=== PATIENT | male | born 1990 | race American Indian/Alaskan Native ===

== ENCOUNTER 2017-04-02 01:45 | Emergency (ER) | payer SELFPAY ==
[2017-04-02 02:17] LABS: Basophils % (Auto) 0.5 % (0.0-1.8); Eosinophils % (Auto) 0.3 % (0.0-4.3); Hematocrit 45.5 % (35.5-45.6); Hemoglobin 15.4 gm/dl (11.8-15.2); Mean Corpuscular HGB Conc 34 % (32-34); Mean Corpuscular Hemoglobin 28 pg (28-32); Mean Corpuscular Volume 82 fl (84-94); Platelet Count 263 K/mm3 (140-440); Red Blood Count 5.52 M/mm3 (3.65-5.03); Red Cell Distribution Width 14.1 % (13.2-15.2); White Blood Count 8.2 K/mm3 (4.5-11.0)
[2017-04-02 02:40] LABS: Anion Gap 21 mmol/L; BUN/Creatinine Ratio 17; Blood Urea Nitrogen 17 mg/dL (9-20); Calcium 9.1 mg/dL (8.4-10.2); Carbon Dioxide 23 mmol/L (22-30); Chloride 99.6 mmol/L (98-107); Glucose 142 mg/dL (75-100); Potassium 3.3 mmol/L (3.6-5.0); Sodium 140 mmol/L (137-145)
[2017-04-02 03:05] LABS: Urine Drugs of Abuse Note Disclamer
[2017-04-02 03:26] LABS: Bilirubin,Urine NEG (Negative); Blood,Urine NEG (Negative); Ketones,Urine TR mg/dL (Negative); Leukocyte Esterase,Urine NEG (Negative); Mucus,Urine 2+ /HPF; Nitrite,Urine NEG (Negative); Protein,Urine <15 mg/dL mg/dL (Negative)
[2017-04-02] MEDS ORDERED: K-DUR PO ONE (03:58)
--- NOTE | 2017-04-02 06:16 | Emergency Department Report ---
ED Psych HPI - General Chief Complaint: Psych Stated Complaint: SUICIDAL Time Seen by Provider: 04/02/17 03:52 Source: patient Mode of arrival: Ambulatory Limitations: No Limitations - History of Present Illness Initial Comments: 26-year-old male presents to the hospital with complaints of sided thoughts times several months. Patient also having auditory and visual hallucinations seeing "black shadows" for several months. Patient also experiencing paranoia. Patient has been homeless 1 year dealing with a cocaine addiction for 10 years. Patient denies previous suicide attempts. Plan today is to run into [employer]. No physical complaints. Patient denies history of psychiatric diagnosis or treatment - Related Data Home Medications Medication Instructions Recorded Confirmed Last Taken Rivaroxaban [Xarelto] 20 mg PO QDAY 04/02/17 04/02/17 3 Weeks Ago Allergies Allergy/AdvReac Type Severity Reaction Status Date / Time Penicillins AdvReac Angioedema Verified 04/02/17 01:54 ED Review of Systems ROS: Stated complaint: SUICIDAL Other details as noted in HPI Comment: All other systems reviewed and negative Other: Constitutional: No fevers chills Eyes: No eye pain visual changes ENT: No ear pain or throat pain Neck: Denies pain Respiratory: Denies cough wheezing shortness of breath Cardiovascular: Denies chest pain, palpitations, syncope GI: Denies abdominal pain, nausea, vomiting, diarrhea : Denies dysuria Musculoskeletal: Denies back pain Skin: Denies rash, lesions, erythema Neurologic: Denies headache, numbness, weakness Psychiatric: As per HPI ED Past Medical Hx - Past Medical History Previous Medical History?: Yes Additional medical history: Protein deficiency, - Surgical History Past Surgical History?: Yes Additional Surgical History: right leg amputation, dvt - Social History Smoking Status: Current Every Day Smoker Substance Use Type: Alcohol - Medications Home Medications: Home Medications Medication Instructions Recorded Confirmed Last Taken Type Rivaroxaban [Xarelto] 20 mg PO QDAY 04/02/17 04/02/17 3 Weeks Ago History ED Physical Exam - General Limitations: No Limitations - Other Other exam information: General: No limitations, patient is alert in no acute distress Head exam: Atraumatic, normocephalic Eyes exam: Normal appearance, pupils equal reactive to light, extraocular movements intact ENT: Moist mucous membrane, normal oropharynx Neck exam: Normal inspection, full range of motion, no meningismus nontender Respiratory exam: Clear to auscultation bilateral, no wheezes, rales, crackles Cardiovascular: Normal rate and rhythm, normal heart sounds Abdomen: Soft, nondistended, and nontender, with normal bowel sounds, no rebound, or guarding Extremity: Full range of motion normal inspection no deformity Back: Normal Inspection, full range of motion, no tenderness Neurologic: Alert, oriented x3, cranial nerves intact, no motor or sensory deficit Psychiatric: normal affect, normal mood Skin: Warm, dry, intact ED Course Vital Signs 04/02/17 04/02/17 01:48 01:50 Temperature 97.6 F 97.6 F Pulse Rate 96 H 98 H Respiratory 17 18 Rate Blood Pressure 116/71 O2 Sat by Pulse 99 96 Oximetry - Reevaluation(s) Reevaluation #1: 04/02/17 06:18 stable [facility] ED Medical Decision Making - Lab Data Result diagrams: 04/02/17 02:03 04/02/17 02:03 Lab Results 04/02/17 04/02/17 04/02/17 Range/Units 02:03 02:03 02:03 WBC 8.2 (4.5-11.0) K/mm3 RBC 5.52 H (3.65-5.03) M/mm3 Hgb 15.4 H (11.8-15.2) gm/dl Hct 45.5 (35.5-45.6) % MCV 82 L (84-94) fl MCH 28 (28-32) pg MCHC 34 (32-34) % RDW 14.1 (13.2-15.2) % Plt Count 263 (140-440) K/mm3 Lymph % (Auto) 27.6 (13.4-35.0) % [place] % (Auto) 7.1 (0.0-7.3) % Eos % (Auto) 0.3 (0.0-4.3) % Baso % (Auto) 0.5 (0.0-1.8) % Lymph # 2.3 (1.2-5.4) K/mm3 [place] # 0.6 (0.0-0.8) K/mm3 Eos # 0.0 (0.0-0.4) K/mm3 Baso # 0.0 (0.0-0.1) K/mm3 Seg Neutrophils % 64.5 (40.0-70.0) % Seg Neutrophils # 5.3 (1.8-7.7) K/mm3 Sodium 140 (137-145) mmol/L Potassium 3.3 L (3.6-5.0) mmol/L Chloride 99.6 (98-107) mmol/L Carbon Dioxide 23 (22-30) mmol/L Anion Gap 21 mmol/L BUN 17 (9-20) mg/dL Creatinine 1.0 (0.8-1.5) mg/dL Estimated GFR > 60 ml/min BUN/Creatinine Ratio 17 % Glucose 142 H (75-100) mg/dL Calcium 9.1 (8.4-10.2) mg/dL Total Creatine Kinase (55-170) units/L Urine Color (Yellow) Urine Turbidity (Clear) Urine pH (5.0-7.0) Ur Specific [place] (1.003-1.030) Urine Protein (Negative) mg/dL Urine Glucose (UA) (Negative) mg/dL Urine Ketones (Negative) mg/dL Urine Blood (Negative) Urine Nitrite (Negative) Urine Bilirubin (Negative) Urine Urobilinogen (<2.0) mg/dL Ur Leukocyte Esterase (Negative) Urine WBC (Auto) (0.0-6.0) /HPF Urine RBC (Auto) (0.0-6.0) /HPF U Epithel Cells (Auto) (0-13.0) /HPF Urine Mucus /HPF Urine Opiates Screen Urine Methadone Screen Ur Barbiturates Screen Ur Phencyclidine Scrn Ur Amphetamines Screen U Benzodiazepines Scrn Urine Cocaine Screen U Marijuana (THC) Screen Drugs of Abuse Note Plasma/Serum Alcohol < 0.01 (0-0.07) gm% 04/02/17 04/02/17 04/02/17 Range/Units 02:03 02:33 02:33 WBC (4.5-11.0) K/mm3 RBC (3.65-5.03) M/mm3 Hgb (11.8-15.2) gm/dl Hct (35.5-45.6) % MCV (84-94) fl MCH (28-32) pg MCHC (32-34) % RDW (13.2-15.2) % Plt Count (140-440) K/mm3 Lymph % (Auto) (13.4-35.0) % [place] % (Auto) (0.0-7.3) % Eos % (Auto) (0.0-4.3) % Baso % (Auto) (0.0-1.8) % Lymph # (1.2-5.4) K/mm3 [place] # (0.0-0.8) K/mm3 Eos # (0.0-0.4) K/mm3 Baso # (0.0-0.1) K/mm3 Seg Neutrophils % (40.0-70.0) % Seg Neutrophils # (1.8-7.7) K/mm3 Sodium (137-145) mmol/L Potassium (3.6-5.0) mmol/L Chloride (98-107) mmol/L Carbon Dioxide (22-30) mmol/L Anion Gap mmol/L BUN (9-20) mg/dL Creatinine (0.8-1.5) mg/dL Estimated GFR ml/min BUN/Creatinine Ratio % Glucose (75-100) mg/dL Calcium (8.4-10.2) mg/dL Total Creatine Kinase 267 H (55-170) units/L Urine Color Yellow (Yellow) Urine Turbidity Clear (Clear) Urine pH 6.0 (5.0-7.0) Ur Specific [place] 1.029 (1.003-1.030) Urine Protein <15 mg/dl (Negative) mg/dL Urine Glucose (UA) Neg (Negative) mg/dL Urine Ketones Tr (Negative) mg/dL Urine Blood Neg (Negative) Urine Nitrite Neg (Negative) Urine Bilirubin Neg (Negative) Urine Urobilinogen 4.0 (<2.0) mg/dL Ur Leukocyte Esterase Neg (Negative) Urine WBC (Auto) 1.0 (0.0-6.0) /HPF Urine RBC (Auto) 2.0 (0.0-6.0) /HPF U Epithel Cells (Auto) < 1.0 (0-13.0) /HPF Urine Mucus 2+ /HPF Urine Opiates Screen Presumptive negative Urine Methadone Screen Presumptive negative Ur Barbiturates Screen Presumptive negative Ur Phencyclidine Scrn Presumptive negative Ur Amphetamines Screen Presumptive negative U Benzodiazepines Scrn Presumptive negative Urine Cocaine Screen Presumptive positive U Marijuana (THC) Screen Presumptive negative Drugs of Abuse Note Disclamer Plasma/Serum Alcohol (0-0.07) gm% - Medical Decision Making Patient received by mouth potassium. Patient medically clear for psychiatric admission. 1013 and transfer signed - Differential Diagnosis homelessness, substance abuse, bipolar, psychosis, schizophrenia, substance Critical Care Time: No Critical care attestation.: If time is entered above; I have spent that time in minutes in the direct care of this critically ill patient, excluding procedure time. ED Disposition Clinical Impression: Suicidal ideation, Cocaine abuse, Psychosis, Medical clearance for psychiatric admission Disposition: [id number]/TX-65 PSY HOSP/PSY UNIT Is pt being admited?: No Does the pt Need Aspirin: No Condition: Stable Time of Disposition: 06:19 (awaiting acceptance)
--- NOTE | 2017-04-02 11:39 | Consultation ---
History of Present Illness - Reason for Consult Consult date: 04/02/17 Reason for consult: Mental Health Evaluation Requesting physician: MARISA US - Chief Complaint Chief complaint: "I have no reason to live" - History of Present Psychiatric Illness 26-year-old male presents to the hospital with complaints of sided thoughts times several months. Today patient is calm and cooperative during the assessment. He stated that he been "battling" depression and SI's for months. He stated that his cocaine addiction (10 plus years) is the cause of all his problems. He stated that he called the crisis hotline prior to being admitted to [facility]. He stated being unsuccessful with rehab for his cocaine addiction in the past. He stated that his sleep has been erratic the past couple of weeks because he was "binging" on cocaine. He stated experiencing AH's during this time. He stated feeling sad, helpless, and hopeless with a plan to overdose on cocaine if given the chance. He denies any suicide attempts in the past. He denies HI's and VH's. He rate his depression 7/10, with 10 being the worse. He denies excessive alcohol consumption (etoh). Patient has a right AKA. Patient positive for cocaine. Medications and Allergies Allergies Allergy/AdvReac Type Severity Reaction Status Date / Time Penicillins AdvReac Angioedema Verified 04/02/17 01:54 Home Medications Medication Instructions Recorded Confirmed Last Taken Type Rivaroxaban [Xarelto] 20 mg PO QDAY 04/02/17 04/02/17 3 Weeks Ago History Past psychiatric history - Past Medical History Past Medical History: other (Blood Clots) Past Surgical History: Other (Right AKA) - past Psychiatric treatment and history psychiatric treatment history: Denies a psy hx and a fam psy hx. - Social History Social history: other (Homeless) Mental Status Exam - Vital signs Last Vital Signs Temp 97.0 F L 04/02/17 09:39 Pulse 85 04/02/17 09:39 Resp 18 04/02/17 09:41 BP 106/63 04/02/17 09:39 Pulse Ox 98 04/02/17 09:41 - Exam Narrative exam: MSE: Appearance: calm, cooperative, disheveled Behavior: poor eye contact Speech: low rate and tone Mood: "depressed" withdrawn, sad Affect: congruent to mood Thought Process: circumstantial Thought Content: denies SI and VH's, intermittent AH's Motor Activity: lying in bed Cognition: A/O x3 Insight: variable Judgment: variable Results Result Diagrams: 04/02/17 02:03 04/02/17 02:03 Abnormal lab results 04/02/17 04/02/17 04/02/17 Range/Units 02:03 02:03 02:03 RBC 5.52 H (3.65-5.03) M/mm3 Hgb 15.4 H (11.8-15.2) gm/dl MCV 82 L (84-94) fl Potassium 3.3 L (3.6-5.0) mmol/L Glucose 142 H (75-100) mg/dL Total Creatine Kinase 267 H (55-170) units/L All other labs normal. Assessment and Plan Assessment and plan: Impression: MDD severe type. Substance Use DO (cocaine). Today patient is calm and cooperative during the assessment. Patient is suicidal with a plan. Patient has right AKA. Patient positive for cocaine. DDx: R/O Bipolar, Substance Induced Mood DO Recommendation/Plan: Continue 1013 with placement to inpatient psy services. Start Remeron 15 mg PO HS for depression/sleep consolidation. Discussed possible suicidality/medication induced bill reference Remeron with patient. Discussed the importance to abstain from recreational drugs use.
[2017-04-02] MEDS ORDERED: REMERON PO SCH (22:00)
[2017-04-03] MEDS ORDERED: XARELTO PO ONE (09:30)
--- NOTE | 2017-04-03 10:26 | Progress Note ---
Subjective - Reason for Consult Consult date: 04/03/17 Reason for consult: Psychiatry Follow-up - Chief Complaint Chief complaint: "I feel sleepy" 26-year-old male presents to the hospital with complaints of sided thoughts times several months. Today patient is calm and cooperative during the assessment. He stated getting rest last night, but feel "drowsy." He stated that the medication made him feel "weird" last night (Remeron). He could not confirm or deny SI's. He denies AVH's. He rate his depression 6/10, with 10 being the worse. Patient stated that he take Xarelto for blood clots, but have not taking the medications in weeks. Mental Status Exam - Vital signs Last Vital Signs Temp 98.2 F 04/03/17 08:30 Pulse 78 04/03/17 08:30 Resp 16 04/03/17 08:30 BP 113/91 04/03/17 08:30 Pulse Ox 100 04/03/17 08:30 - Exam Narrative exam: MSE: Appearance: calm, cooperative Behavior: regular eye contact Speech: regular rate and tone Mood: "depressed" Affect: congruent to mood Thought Process: circumstantial Thought Content: denies HI's and AVH's Motor Activity: lying in bed, lethargic Cognition: A/O x3 Insight: variable Judgment: variable Assessment and Plan Impression: MDD severe type. Substance Use DO (cocaine). Today patient is calm and cooperative during the assessment. Patient has passive SI's. Patient has right AKA. Patient positive for cocaine. DDx: R/O Bipolar, Substance Induced Mood DO Recommendation/Plan: Continue 1013 with placement to inpatient psy services. Start Zoloft 50 mg PO daily depression. Discussed possible suicidality/ medication induced bill reference Zoloft with patient. Discussed the importance to abstain from recreational drugs use. Informed the ER Physician and nursing staff that patient takes Xarelto for blood clots.
[2017-04-03] MEDS: ZOLOFT PO SCH (11:05)
--- NOTE | 2017-04-04 10:48 | Progress Note ---
Subjective - Reason for Consult Consult date: 04/04/17 Reason for consult: Psychiatry Follow-up - Chief Complaint Chief complaint: "I feel better" 26-year-old male presents to the hospital with complaints of sided thoughts times several months. Today patient is calm and cooperative during the assessment. He stated that he want to get his life together once discharged. He stated that he got plenty of rest last night. He denies SI/HI's and AVH's. He rate his depression 3/10, with 10 being the worse. He denies any side effects of his medications. This is the patient's first day denying SI's. Mental Status Exam - Vital signs Last Vital Signs Temp 98 F 04/03/17 20:35 Pulse 88 04/03/17 20:35 Resp 18 04/03/17 20:35 BP 127/80 04/03/17 20:35 Pulse Ox 99 04/03/17 20:35 - Exam Narrative exam: MSE: Appearance: calm, cooperative Behavior: regular eye contact Speech: regular rate and tone Mood: "better" Affect: congruent to mood Thought Process: circumstantial Thought Content: denies HI's and AVH's Motor Activity: lying in bed Cognition: A/O x3 Insight: variable Judgment: variable Assessment and Plan Impression: MDD severe type. Substance Use DO (cocaine). Today patient is calm and cooperative during the assessment. Patient has right AKA. Patient positive for cocaine. DDx: R/O Bipolar, Substance Induced Mood DO Recommendation/Plan: Evaluate 1013 in 24 hours to determine proper dispo. Continue Zoloft 50 mg PO daily depression. Discussed possible suicidality/ medication induced bill reference Zoloft with patient. Discussed the importance to abstain from recreational drugs use. Informed the ER Physician and nursing staff that patient takes Xarelto for blood clots.
[2017-04-04] MEDS: ZOLOFT PO SCH (11:27)
[2017-04-05] MEDS: ZOLOFT PO SCH (09:56)
--- NOTE | 2017-04-05 15:56 | Progress Note ---
Subjective - Reason for Consult Reason for consult: depression - Chief Complaint Chief complaint: Patient appears euthymic but tired. He was informed that he would be transferred to [facility]. No SI/HI/AVH currently. Mental Status Exam - Vital signs Last Vital Signs Temp 98.5 F 04/05/17 08:53 Pulse 68 04/05/17 08:53 Resp 18 04/05/17 10:10 BP 110/72 04/05/17 08:53 Pulse Ox 100 04/05/17 10:10 - Exam Orientation: time, place Affect: normal Mood: appropriate Thought Process: Intact Perceptions: none Speech: normal rate and pattern Concentration: focused Motor activity: normal Level of consciousness: alert Memory: Intact Sleep Symptoms: None Interaction: cooperative Assessment and Plan Plan: Transfer to [facility] this evening
[2017-04-05 22:17] VITALS: BP 124/84
== END 2017-04-05 22:15 ==
LOC: ED 01:45 → EEVIPCON 01:45 → ED 04-05 22:15
DX: R45.851 Suicidal ideations (principal); R11.0 Nausea; R44.2 Other hallucinations; F14.10 Cocaine abuse, uncomplicated; F29 Unspecified psychosis not due to a substance or known physiological condition; F17.200 Nicotine dependence, unspecified, uncomplicated; Z88.0 Allergy status to penicillin
CPT/HCPCS: 36415; 80048; 80307; 81001; 82550; 85025; 99285; G0480; 80320